=== PATIENT | female | born 1965 | race Two or more races ===

== ENCOUNTER 2021-02-26 09:44 | Emergency (ER) | payer OTHER, SELFPAY ==
--- NOTE | 2021-02-26 | ECG_ITS ---
Test Reason : CHEST PAIN Blood Pressure : / mmHG Vent. Rate : 078 BPM Atrial Rate : 078 BPM P-R Int : 158 ms QRS Dur : 082 ms QT Int : 386 ms P-R-T Axes : 044 -18 006 degrees QTc Int : 440 ms Normal sinus rhythm Cannot rule out Anterior infarct , age undetermined Abnormal ECG When compared with ECG of 30-DEC-2013 04:51, No significant change was found Referred By: Generic ED Physician Electronically Signed By:ALE YOUNGBLOOD MD
--- NOTE | ~2021-02-26 | XR_ITS ---
EXAMINATION: XR CHEST XR ABDOMEN CLINICAL INFORMATION: Chest pain. Evaluate stool burden. COMPARISON: None TECHNIQUE: PA and lateral views of the chest. 1 view, 2 images of the abdomen. FINDINGS: The lungs are well expanded. There is no focal consolidation, edema, or effusion. No pneumothorax. The cardiomediastinal silhouette is within normal limits. No acute osseous abnormality. Nonobstructive bowel gas pattern. No dilated loops of bowel. Gas and stool throughout the colon with mild to moderate colonic stool burden. Right upper quadrant surgical clips. No acute osseous abnormality. XR/XR chest 2V IMPRESSION: Clear lungs. Mild to moderate colonic stool burden.
--- NOTE | ~2021-02-26 | XR_ITS ---
EXAMINATION: XR CHEST XR ABDOMEN CLINICAL INFORMATION: Chest pain. Evaluate stool burden. COMPARISON: None TECHNIQUE: PA and lateral views of the chest. 1 view, 2 images of the abdomen. FINDINGS: The lungs are well expanded. There is no focal consolidation, edema, or effusion. No pneumothorax. The cardiomediastinal silhouette is within normal limits. No acute osseous abnormality. Nonobstructive bowel gas pattern. No dilated loops of bowel. Gas and stool throughout the colon with mild to moderate colonic stool burden. Right upper quadrant surgical clips. No acute osseous abnormality. XR/XR KUB IMPRESSION: Clear lungs. Mild to moderate colonic stool burden.
[2021-02-26 09:51] VITALS: BP 188/85; PULSE 83; RESP 19; TEMP 36.7; O2SAT 96; BMI 38.7
[2021-02-26 12:00] VITALS: BP 137/87; PULSE 73; RESP 18; TEMP 36.4; O2SAT 98
--- NOTE | 2021-02-26 12:09 | ED.CHESTPAIN ---
HPI - Chest Pain General Chief Complaint: Chest Pain <Marybeth Carrillo NP - Last Filed: 02/26/21 16:05> Stated Complaint: chest pain, HBP <Marybeth Carrillo NP - Last Filed: 02/26/21 16:05> Time Seen by Provider: 02/26/21 11:46 <Marybeth Carrillo NP - Last Filed: 02/26/21 16:05> Source: patient <Marybeth Carrillo NP - Last Filed: 02/26/21 16:05> Mode of arrival: ambulatory <Marybeth Carrillo NP - Last Filed: 02/26/21 16:05> Limitations: no limitations <Marybeth Carrillo NP - Last Filed: 02/26/21 16:05> History of Present Illness HPI narrative: 55-year-old female with a past medical history of hypertension hyperlipidemia here with multiple complaints. The patient tells me that she woke up at 01:00 feeling very anxious like her entire body was moving and was able to fall back asleep until 04:00 when she woke up with chest pressure and heaviness which has continued through to her ED visit. She denies any associated shortness of breath, nausea, diaphoresis or dizziness. She tells me she has been struggling with intermittent chest pressure for months but has not seen her doctor or come to the emergency department for concern of COVID. She tells me she is here today because she was accidentally needed 2 weeks ago for COVID-19 and feels less anxious about being here in the emergency department. She does me she has also suppurative panic attacks over the last 2 months which are associated with shortness of breath and palpitations and numbness in her fingers and toes. She is also complaining of chronic bilateral foot numbness, right him numbness, facial numbness, dizziness, abdominal pain, constipation, jaw pain which have been occurring for the last few months. Patient tells me that she had been taking 2 different blood pressure medications and cholesterol medications until about 3 months ago when she was homeless and she stopped taking them. She did resume her losartan 100 mg every day with has not resumed her other medications. Her blood pressures have been running high home which patient tells me has been in the 180s to 90s. <Marybeth Carrillo NP - Last Filed: 02/26/21 16:05> MD complaint: chest heaviness <Marybeth Carrillo NP - Last Filed: 02/26/21 16:05> Related Data Home Medications: Previous Rx's Medication Instructions Recorded docusate sodium [Colace] 100 mg PO BID #20 cap 02/26/21 polyethylene glycol 3350 [Miralax] 17 g PO BID #238 g 02/26/21 <Marybeth Carrillo NP - Last Filed: 02/26/21 16:05> Allergies/Adverse Reactions: Allergies Allergy/AdvReac Type Severity Reaction Status Date / Time apple [Apple] Allergy Severe SWELLING Unverified 02/26/21 09:51 peanut [Peanut] Allergy Severe ANAPHYLAXIS Unverified 02/26/21 09:51 pollen extracts [POLLEN] Allergy Mild SNEEZING Unverified 02/26/21 09:51 acetaminophen [From PERCOCET] Allergy Unknown DIFFICULTY Unverified 02/26/21 09:51 BREATHING oxycodone [From PERCOCET] Allergy Unknown DIFFICULTY Unverified 02/26/21 09:51 BREATHING Penicillin Allergy Unknown Rash Unverified 02/26/21 09:51 lactose [Lactose] AdvReac Intermediate DIARRHEA/PA Unverified 02/26/21 09:51 IN Penicillins [PENICILLINS] AdvReac Intermediate VOMITING Unverified 02/26/21 09:51 DUST Allergy Mild SNEEZING Uncoded 02/26/21 09:51 Amoxicillin Allergy Unknown Rash Uncoded 02/26/21 09:51 Percocet Allergy Unknown Difficulty Uncoded 02/26/21 09:51 Breathing <Marybeth Carrillo NP - Last Filed: 02/26/21 16:05> Review of Systems Review of Systems: Yes all other systems are reviewed and are negative <Marybeth Carrillo NP - Last Filed: 02/26/21 16:05> Constitutional: Constitutional: Reports no additional constitutional complaints, Denies body ache(s), Reports chills, Denies fever(s), Denies headache(s) and Denies weakness <Marybeth Carrillo NP - Last Filed: 02/26/21 16:05> Eyes: Eyes: Reports no additional eye complaints and Denies change in vision <Marybeth Carrillo NP - Last Filed: 02/26/21 16:05> ENT: Reports system reviewed and no additional complaints, except as documented, Reports dizziness, Denies headache(s), Denies nasal congestion, Denies nasal discharge and Denies neck pain <Marybeth Carrillo NP - Last Filed: 02/26/21 16:05> Comments: Jaw pain <Marybeth Carrillo [employer] - Last Filed: 02/26/21 16:05> Cardiovascular: Cardiovascular: Reports no additional cardiovascular complaints, Reports chest pain, Denies leg edema and Denies dyspnea <Marybeth Carrillo NP - Last Filed: 02/26/21 16:05> Respiratory: Respiratory: Reports no additional respiratory complaints, Denies cough and Denies dyspnea <Marybeth Carrillo NP - Last Filed: 02/26/21 16:05> Gastrointestinal: Gastrointestinal: Reports no additional gastrointestinal complaints, Reports abdominal pain, Reports constipation, Denies diarrhea, Denies nausea and Denies vomiting <Marybeth Carrillo NP - Last Filed: 02/26/21 16:05> Genitourinary: Genitourinary: Reports no additional female genitourinary complaints and Denies urinary incontinence <Marybeth Carrillo NP - Last Filed: 02/26/21 16:05> Musculoskeletal: Musculoskeletal: Reports no additional musculoskeletal complaints, Denies back pain, Denies arthralgias, Denies joint swelling, Denies neck pain, Reports numbness and Reports tingling <Marybeth Carrillo NP - Last Filed: 02/26/21 16:05> Integumentary/Breasts: Skin/Breast: Reports system reviewed and no additional complaints, except as docu and Denies rash <Marybeth Carrillo NP - Last Filed: 02/26/21 16:05> Neurologic: Reports system reviewed and no additional complaints, except as documented, Denies Abnormal speech present, Reports dizziness, Denies headache(s), Reports numbness, Reports tingling and Denies weakness <Marybeth Carrillo NP - Last Filed: 02/26/21 16:05> [facility] Past Medical History Attestation statement: The following information was validated with the patient. <Marybeth Carrillo NP - Last Filed: 02/26/21 16:05> Source: old records reviewed and nursing notes reviewed <Marybeth Carrillo NP - Last Filed: 02/26/21 16:05> Medical History: Medical History Diabetes HTN (hypertension) <Marybeth Carrillo NP - Last Filed: 02/26/21 16:05> Social History Social History: Social History Advance Directives: No Advance Directives Information Provided: No <Marybeth Carrillo NP - Last Filed: 02/26/21 16:05> Physical Exam Vital Signs: Vital Signs: Last Vital Signs Temp 98.2 F 02/26/21 14:00 Pulse 77 02/26/21 14:00 Resp 18 02/26/21 12:00 BP 144/77 H 02/26/21 14:00 Pulse Ox 98 02/26/21 14:00 Body Mass Index 38.7 <Marybeth Carrillo NP - Last Filed: 02/26/21 16:05> Vital Signs: Last Vital Signs Temp 98.2 F 02/26/21 14:00 Pulse 77 02/26/21 14:00 Resp 18 02/26/21 12:00 BP 144/77 H 02/26/21 14:00 Pulse Ox 98 02/26/21 14:00 Body Mass Index 38.7 <Vladimir Waller MD - Last Filed: 03/13/21 07:44> Const: General: cooperative, healthy appearing, comfortable and no acute distress <Marybeth Carrillo NP - Last Filed: 02/26/21 16:05> Orientation/consciousness: patient oriented x3 <Marybeth Carrillo NP - Last Filed: 02/26/21 16:05> Limitations: no limitations <Marybeth Carrillo NP - Last Filed: 02/26/21 16:05> HENMT: Head: Yes normal to inspection <Marybeth Carrillo NP - Last Filed: 02/26/21 16:05> Ears: hearing grossly normal bilaterally <Marybeth Carrillo NP - Last Filed: 02/26/21 16:05> General nose exam: Normal external nose present <Marybeth Carrillo NP - Last Filed: 02/26/21 16:05> Face and sinus: Yes normal facial exam <Marybeth Carrillo NP - Last Filed: 02/26/21 16:05> Mouth: Normal oral and palatal mucosa present <Marybeth Carrillo NP - Last Filed: 02/26/21 16:05> Throat: Yes posterior oropharynx normal <Marybeth Carrillo NP - Last Filed: 02/26/21 16:05> Eyes: General: appearance normal, both eyes and all related structures <Marybeth Carrillo NP - Last Filed: 02/26/21 16:05> Pupils: Equal, round and reactive pupils present <Marybeth Carrillo NP - Last Filed: 02/26/21 16:05> Neck: Neck: Yes normal visual inspection <Marybeth Carrillo NP - Last Filed: 02/26/21 16:05> Chest: Chest palpation & inspection: normal inspection of the chest <Marybeth Carrillo NP - Last Filed: 02/26/21 16:05> Resp: Effort & Inspection: normal respiratory effort <Marybeth Carrillo NP - Last Filed: 02/26/21 16:05> Auscultation: clear to auscultation bilaterally <Marybeth Carrillo NP - Last Filed: 02/26/21 16:05> Cardio: Rate: regular rate <Marybeth Carrillo NP - Last Filed: 02/26/21 16:05> Rhythm: regular rhythm <Marybeth Carrillo NP - Last Filed: 02/26/21 16:05> Peripheral pulses: Peripheral pulses 2+ throughout <Marybeth Carrillo NP - Last Filed: 02/26/21 16:05> GI: Inspection: Yes normal to inspection <Marybeth Carrillo NP - Last Filed: 02/26/21 16:05> Palpation (GI): Soft to palpation and Tenderness to palpation present (GI) (Mild diffuse tenderness with no focal tenderness rebound or guarding) <Marybeth Carrillo NP - Last Filed: 02/26/21 16:05> Auscultation: normal bowel sounds <Marybeth Carrillo NP - Last Filed: 02/26/21 16:05> Back/Spine/Pelvis: Thoracic/Lumbar Spine: thoracic and lumbar spine normal to inspection <Marybeth Carrillo NP - Last Filed: 02/26/21 16:05> Skin: General skin exam: no rashes or lesions noted <Marybeth Carrillo NP - Last Filed: 02/26/21 16:05> Neuro: General: patient oriented x3, no focal motor deficits and normal sensation to monofilament <Marybeth Carrillo NP - Last Filed: 02/26/21 16:05> Cranial nerves: Yes CN's II-XII intact bilaterally, Yes Equal, round and reactive pupils present, Yes Bilaterally intact EOM present, Yes Nystagmus not present, Yes Normal facial strength present and Yes Midline tongue present <Marybeth Carrillo NP - Last Filed: 02/26/21 16:05> Cognition (Neuro): normal cognition <Marybeth Carrillo NP - Last Filed: 02/26/21 16:05> Speech: No Abnormal speech present <Marybeth Carrillo NP - Last Filed: 02/26/21 16:05> Gait exam (Neuro): Normal gait present <Marybeth Carrillo NP - Last Filed: 02/26/21 16:05> Motor exam (neuro): 5/5 motor strength present throughout <Marybeth Carrillo NP - Last Filed: 02/26/21 16:05> Sensory Exam: Normal double simultaneous stimulation for sensation <Marybeth Carrillo NP - Last Filed: 02/26/21 16:05> Coordination: [id number] test normal, [id number] test normal and tandem gait normal <Marybeth Carrillo NP - Last Filed: 02/26/21 16:05> Extrem: General: Yes normal to inspection, Yes no pedal edema and Yes no calf tenderness <Marybeth Carrillo NP - Last Filed: 02/26/21 16:05> Course Course Course Narrative: 55-year-old female here with a constellation of symptoms for quite some time however more specifically chest pressure since 04:00. Overall well-appearing. Normal neurological exam. Stable vital signs with exception of mild hypertension. Mild diffuse tenderness in the abdomen but no focal tenderness or rebound or guarding. Will need labs, chest x-ray, KUB, EKG. 1345-labs including troponin are negative. EKG shows no ischemic changes. Chest x-ray unremarkable. KUB shows a [id number] stool burden. Blood pressure improved without any intervention. Reviewed findings with the patient. Recommended follow-up outpatient with her primary care doctor. Reviewed worrisome signs and symptoms of when to seek additional ED care. Comfortable with discharge home. <Marybeth Carrillo NP - Last Filed: 02/26/21 16:05> I have reviewed the chart <Vladimir Waller MD - Last Filed: 03/13/21 07:44> MDM - Chest Pain MDM Narrative Medical decision making narrative: Anxiety, ACS, constipation, bowel obstruction Less likely ACS with symptoms greater than 8 hours, EKG with no ischemic changes and negative troponin Constellation of symptoms most occurring > months that are more concerning for underlying anxiety versus acute emergency. <Marybeth Carrillo NP - Last Filed: 02/26/21 16:05> Medical Records Data Attestation: I reviewed the patient's medical records. <Marybeth Carrillo NP - Last Filed: 02/26/21 16:05> Lab Data Attestation: I reviewed the patient's lab results. <Marybeth Carrillo NP - Last Filed: 02/26/21 16:05> Result diagrams: : 02/26/21 12:36 02/26/21 12:36 <Marybeth Carrillo NP - Last Filed: 02/26/21 16:05> Labs: Lab Results 02/26/21 02/26/21 02/26/21 Range/Units 12:36 12:36 12:36 WBC 7.0 (4.8-10.8) X10*3/uL RBC 4.45 (4.20-5.50) X10*6/uL Hgb 11.9 L (12.0-16.0) g/dl Hct 37.3 (37-47) % MCV 83.8 (80-98) fL MCH 26.7 L (27.0-33.0) pg MCHC 31.9 (31.0-35.0) g/dl RDW 13.2 (11.0-16.0) % Plt Count 369 (160-400) X10*3/uL MPV 10.0 (9.4-12.3) fL Immature Gran % (Auto) 0.1 (0.0-0.4) % Neut % (Auto) 53.5 (45-73) % Lymph % (Auto) 36.1 (20-40) % [place] % (Auto) 7.2 (2-11) % Eos % (Auto) 2.7 (0-4) % Baso % (Auto) 0.4 (0-2) % Lymph # (Auto) 2.5 (1.2-4.9) X10*3/uL [place] # (Auto) 0.5 (0.1-1.2) X10*3/uL Eos # (Auto) 0.2 (0.0-0.4) X10*3/uL Baso # (Auto) 0.0 (0.0-0.2) X10*3/uL Abs Immat Gran (auto) 0.01 (0.00-0.03) X10*3/uL Absolute Neuts (auto) 3.7 (2.0-8.3) X10*3/uL Absolute Nucleated RBC 0.000 (0.0-0.012) X10*3/uL Nucleated RBC % (auto) 0.0 (0.0-0.2) /100WBC PT 12.9 (10.8-13.0) SEC INR 1.1 (0.9-1.1) Sodium 140 (135-145) mmol/L Potassium 4.3 (3.3-5.1) mmol/L Chloride 104 (96-108) mmol/L Carbon Dioxide 28 (22-29) mmol/L Anion Gap 12 (12-20) BUN 14 (9-16) mg/dL Creatinine 0.79 (0.5-1.4) mg/dL Estim Creat Clear Calc 79.3 Estimated GFR > 60 Random Glucose 107 (60-115) mg/dL Calcium 9.6 (8.4-10.2) mg/dL Magnesium 2.1 (1.6-2.6) mg/dL Total Bilirubin 0.4 (0.0-1.0) mg/dL Direct Bilirubin 0.2 (0.0-0.5) mg/dL AST 27 (5-31) U/L ALT 44 H (0-31) U/L Alkaline Phosphatase 63 (39-117) U/L Troponin I High Sens (<3.5-17.0) ng/L Total Protein 7.2 (6.5-8.0) g/dL Albumin 4.3 (3.5-5.0) g/dL Lipase (8-78) U/L Urine Color Urine Appearance Urine pH (5.0-8.0) Ur Specific [place] (1.005-1.025) Urine Protein (NEG-TRACE) MG/DL Urine Glucose (UA) (NEG) MG/DL Urine Ketones (NEG) MG/DL Urine Blood (NEG) Urine Nitrite (NEG) Ur Leukocyte Esterase (NEG) Urine RBC (0) /HPF Urine WBC (0-4) /HPF Ur Squamous Epith Cells /LPF Urine Bacteria /LPF 02/26/21 02/26/21 02/26/21 Range/Units 12:36 12:36 12:36 WBC (4.8-10.8) X10*3/uL RBC (4.20-5.50) X10*6/uL Hgb (12.0-16.0) g/dl Hct (37-47) % MCV (80-98) fL MCH (27.0-33.0) pg MCHC (31.0-35.0) g/dl RDW (11.0-16.0) % Plt Count (160-400) X10*3/uL MPV (9.4-12.3) fL Immature Gran % (Auto) (0.0-0.4) % Neut % (Auto) (45-73) % Lymph % (Auto) (20-40) % [place] % (Auto) (2-11) % Eos % (Auto) (0-4) % Baso % (Auto) (0-2) % Lymph # (Auto) (1.2-4.9) X10*3/uL [place] # (Auto) (0.1-1.2) X10*3/uL Eos # (Auto) (0.0-0.4) X10*3/uL Baso # (Auto) (0.0-0.2) X10*3/uL Abs Immat Gran (auto) (0.00-0.03) X10*3/uL Absolute Neuts (auto) (2.0-8.3) X10*3/uL Absolute Nucleated RBC (0.0-0.012) X10*3/uL Nucleated RBC % (auto) (0.0-0.2) /100WBC PT (10.8-13.0) SEC INR (0.9-1.1) Sodium (135-145) mmol/L Potassium (3.3-5.1) mmol/L Chloride (96-108) mmol/L Carbon Dioxide (22-29) mmol/L Anion Gap (12-20) BUN (9-16) mg/dL Creatinine (0.5-1.4) mg/dL Estim Creat Clear Calc Estimated GFR Random Glucose (60-115) mg/dL Calcium (8.4-10.2) mg/dL Magnesium (1.6-2.6) mg/dL Total Bilirubin (0.0-1.0) mg/dL Direct Bilirubin (0.0-0.5) mg/dL AST (5-31) U/L ALT (0-31) U/L Alkaline Phosphatase (39-117) U/L Troponin I High Sens 3.8 (<3.5-17.0) ng/L Total Protein (6.5-8.0) g/dL Albumin (3.5-5.0) g/dL Lipase 24 (8-78) U/L Urine Color STRAW Urine Appearance CLEAR Urine pH 6.0 (5.0-8.0) Ur Specific [place] 1.025 (1.005-1.025) Urine Protein NEG (NEG-TRACE) MG/DL Urine Glucose (UA) NEG (NEG) MG/DL Urine Ketones NEG (NEG) MG/DL Urine Blood TRACE (NEG) Urine Nitrite NEG (NEG) Ur Leukocyte Esterase NEG (NEG) Urine RBC 0 (0) /HPF Urine WBC 0 (0-4) /HPF Ur Squamous Epith Cells TRACE /LPF Urine Bacteria NONE /LPF <Marybeth Carrillo NP - Last Filed: 02/26/21 16:05> Lab Results 02/26/21 02/26/21 02/26/21 Range/Units 12:36 12:36 12:36 WBC 7.0 (4.8-10.8) X10*3/uL RBC 4.45 (4.20-5.50) X10*6/uL Hgb 11.9 L (12.0-16.0) g/dl Hct 37.3 (37-47) % MCV 83.8 (80-98) fL MCH 26.7 L (27.0-33.0) pg MCHC 31.9 (31.0-35.0) g/dl RDW 13.2 (11.0-16.0) % Plt Count 369 (160-400) X10*3/uL MPV 10.0 (9.4-12.3) fL Immature Gran % (Auto) 0.1 (0.0-0.4) % Neut % (Auto) 53.5 (45-73) % Lymph % (Auto) 36.1 (20-40) % [place] % (Auto) 7.2 (2-11) % Eos % (Auto) 2.7 (0-4) % Baso % (Auto) 0.4 (0-2) % Lymph # (Auto) 2.5 (1.2-4.9) X10*3/uL [place] # (Auto) 0.5 (0.1-1.2) X10*3/uL Eos # (Auto) 0.2 (0.0-0.4) X10*3/uL Baso # (Auto) 0.0 (0.0-0.2) X10*3/uL Abs Immat Gran (auto) 0.01 (0.00-0.03) X10*3/uL Absolute Neuts (auto) 3.7 (2.0-8.3) X10*3/uL Absolute Nucleated RBC 0.000 (0.0-0.012) X10*3/uL Nucleated RBC % (auto) 0.0 (0.0-0.2) /100WBC PT 12.9 (10.8-13.0) SEC INR 1.1 (0.9-1.1) Sodium 140 (135-145) mmol/L Potassium 4.3 (3.3-5.1) mmol/L Chloride 104 (96-108) mmol/L Carbon Dioxide 28 (22-29) mmol/L Anion Gap 12 (12-20) BUN 14 (9-16) mg/dL Creatinine 0.79 (0.5-1.4) mg/dL Estim Creat Clear Calc 79.3 Estimated GFR > 60 Random Glucose 107 (60-115) mg/dL Calcium 9.6 (8.4-10.2) mg/dL Magnesium 2.1 (1.6-2.6) mg/dL Total Bilirubin 0.4 (0.0-1.0) mg/dL Direct Bilirubin 0.2 (0.0-0.5) mg/dL AST 27 (5-31) U/L ALT 44 H (0-31) U/L Alkaline Phosphatase 63 (39-117) U/L Troponin I High Sens (<3.5-17.0) ng/L Total Protein 7.2 (6.5-8.0) g/dL Albumin 4.3 (3.5-5.0) g/dL Lipase (8-78) U/L Urine Color Urine Appearance Urine pH (5.0-8.0) Ur Specific [place] (1.005-1.025) Urine Protein (NEG-TRACE) MG/DL Urine Glucose (UA) (NEG) MG/DL Urine Ketones (NEG) MG/DL Urine Blood (NEG) Urine Nitrite (NEG) Ur Leukocyte Esterase (NEG) Urine RBC (0) /HPF Urine WBC (0-4) /HPF Ur Squamous Epith Cells /LPF Urine Bacteria /LPF 02/26/21 02/26/21 02/26/21 Range/Units 12:36 12:36 12:36 WBC (4.8-10.8) X10*3/uL RBC (4.20-5.50) X10*6/uL Hgb (12.0-16.0) g/dl Hct (37-47) % MCV (80-98) fL MCH (27.0-33.0) pg MCHC (31.0-35.0) g/dl RDW (11.0-16.0) % Plt Count (160-400) X10*3/uL MPV (9.4-12.3) fL Immature Gran % (Auto) (0.0-0.4) % Neut % (Auto) (45-73) % Lymph % (Auto) (20-40) % [place] % (Auto) (2-11) % Eos % (Auto) (0-4) % Baso % (Auto) (0-2) % Lymph # (Auto) (1.2-4.9) X10*3/uL [place] # (Auto) (0.1-1.2) X10*3/uL Eos # (Auto) (0.0-0.4) X10*3/uL Baso # (Auto) (0.0-0.2) X10*3/uL Abs Immat Gran (auto) (0.00-0.03) X10*3/uL Absolute Neuts (auto) (2.0-8.3) X10*3/uL Absolute Nucleated RBC (0.0-0.012) X10*3/uL Nucleated RBC % (auto) (0.0-0.2) /100WBC PT (10.8-13.0) SEC INR (0.9-1.1) Sodium (135-145) mmol/L Potassium (3.3-5.1) mmol/L Chloride (96-108) mmol/L Carbon Dioxide (22-29) mmol/L Anion Gap (12-20) BUN (9-16) mg/dL Creatinine (0.5-1.4) mg/dL Estim Creat Clear Calc Estimated GFR Random Glucose (60-115) mg/dL Calcium (8.4-10.2) mg/dL Magnesium (1.6-2.6) mg/dL Total Bilirubin (0.0-1.0) mg/dL Direct Bilirubin (0.0-0.5) mg/dL AST (5-31) U/L ALT (0-31) U/L Alkaline Phosphatase (39-117) U/L Troponin I High Sens 3.8 (<3.5-17.0) ng/L Total Protein (6.5-8.0) g/dL Albumin (3.5-5.0) g/dL Lipase 24 (8-78) U/L Urine Color STRAW Urine Appearance CLEAR Urine pH 6.0 (5.0-8.0) Ur Specific [place] 1.025 (1.005-1.025) Urine Protein NEG (NEG-TRACE) MG/DL Urine Glucose (UA) NEG (NEG) MG/DL Urine Ketones NEG (NEG) MG/DL Urine Blood TRACE (NEG) Urine Nitrite NEG (NEG) Ur Leukocyte Esterase NEG (NEG) Urine RBC 0 (0) /HPF Urine WBC 0 (0-4) /HPF Ur Squamous Epith Cells TRACE /LPF Urine Bacteria NONE /LPF <Vladimir Waller MD - Last Filed: 03/13/21 07:44> Imaging Data Chest x-ray: Attestation: I personally reviewed and interpreted this imaging study as follows: <Marybeth Carrillo NP - Last Filed: 02/26/21 16:05> Radiologist's impression: The lungs are well expanded. There is no focal consolidation, edema, or effusion. No pneumothorax. The cardiomediastinal silhouette is within normal limits. No acute osseous abnormality. <Marybeth Carrillo NP - Last Filed: 02/26/21 16:05> Abdominal x-ray: Attestation: I personally reviewed and interpreted this imaging study as follows: <Marybeth Carrillo NP - Last Filed: 02/26/21 16:05> Radiologist's impression: Nonobstructive bowel gas pattern. No dilated loops of bowel. Gas and stool throughout the colon with mild to moderate colonic stool burden. Right upper quadrant surgical clips. No acute osseous abnormality. <Marybeth Carrillo NP - Last Filed: 02/26/21 16:05> Discharge Plan Discharge Clinical Impression: Atypical chest pain, Constipation <REMINGTON Vazquez Last Filed: 02/26/21 16:05> Patient Disposition: Home, Self-Care <REMINGTON Vazquez Last Filed: 02/26/21 16:05> Instructions: Constipation (ED), Chest Wall Pain (ED) <REMINGTON Vazquez Last Filed: 02/26/21 16:05> Additional Instructions: Increase fluids and fiber in the diet. I have sent medications to her pharmacy to help with her bowel Your EKG, blood work and chest x-ray all looked very normal today. Your blood pressure improved without any intervention. You should monitor your blood pressure at home as discussed. Keep your appointment with your primary care doctor for follow-up appointment <Marybeth Carrillo NP - Last Filed: 02/26/21 16:05> Prescriptions: New polyethylene glycol 3350 [Miralax] 17 gram/dose powder 17 g PO BID Qty: 238 RF: 0 docusate sodium [Colace] 100 mg capsule 100 mg PO BID Qty: 20 RF: 0 <Marybeth Carrillo NP - Last Filed: 02/26/21 16:05> Referrals: Physician,Unknown [Primary Care Provider] - 2 days <Marybeth Carrillo NP - Last Filed: 02/26/21 16:05> Interventions: ED Discharge Assessment Last Done: 02/26/21 14:21 <Marybeth Carrillo NP - Last Filed: 02/26/21 16:05> Discharge Date/Time: 02/26/21 14:25 <Marybeth Carrillo NP - Last Filed: 02/26/21 16:05>
[2021-02-26 12:41] LABS: MANUAL DIFF FLAG NO
[2021-02-26 12:45] LABS: Basophils Percent Auto 0.4 % (0-2); Eosinophils Absolute Auto 0.2 X10*3/uL (0.0-0.4); Eosinophils Percent Auto 2.7 % (0-4); Hematocrit 37.3 % (37-47); Hemoglobin 11.9 g/dl (12.0-16.0); Imm Gran Abs Auto 0.01 X10*3/uL (0.00-0.03); Imm Gran Pct Auto 0.1 % (0.0-0.4); Lymphocytes Absolute Auto 2.5 X10*3/uL (1.2-4.9); Lymphocytes Percent Auto 36.1 % (20-40); Mean Corpuscular HGB Conc 31.9 g/dl (31.0-35.0); Mean Corpuscular Hemoglobin 26.7 pg (27.0-33.0); Mean Corpuscular Volume 83.8 fL (80-98); Monocytes Absolute Auto 0.5 X10*3/uL (0.1-1.2); Monocytes Percent Auto 7.2 % (2-11); Neutrophils Absolute Auto 3.7 X10*3/uL (2.0-8.3); Neutrophils Percent Auto 53.5 % (45-73); Platelet Count 369 X10*3/uL (160-400); Red Blood Count 4.45 X10*6/uL (4.20-5.50); Red Cell Distribution Width 13.2 % (11.0-16.0)
[2021-02-26 12:51] LABS: Glucose Urine UA NEG (NEG); Leukocyte Esterase Urine NEG (NEG); Nitrite Urine NEG (NEG); Specific Gravity - Urine 1.025 (1.005-1.025); Urine Blood TRACE (NEG); Urine Ketones NEG (NEG); Urine Protein NEG (NEG-TRACE)
[2021-02-26 12:54] LABS: Appearance Urine CLEAR; Color Urine STRAW
[2021-02-26 12:57] LABS: INTERNATIONAL NORM RATIO 1.1 (0.9-1.1); Prothrombin Time 12.9 SEC (10.8-13.0)
[2021-02-26 13:10] LABS: RBC Urine 0 /HPF (0); Squamous Epithelial Cell Urine TRACE /LPF; WBC Urine 0 /HPF (0-4)
[2021-02-26 13:15] LABS: Alanine Aminotransferase 44 U/L (0-31); Albumin Level 4.3 g/dL (3.5-5.0); Alkaline Phosphatase 63 U/L (39-117); Anion Gap 12 (12-20); Aspartate Amino Transferase 27 U/L (5-31); Bilirubin Direct 0.2 mg/dL (0.0-0.5); Bilirubin Total 0.4 mg/dL (0.0-1.0); Blood Urea Nitrogen 14 mg/dL (9-16); Calcium 9.6 mg/dL (8.4-10.2); Carbon Dioxide 28 mmol/L (22-29); Chloride 104 mmol/L (96-108); Creatinine Clr Calc Pharmacy 79.3; Estimated Glomerular Filt Rate > 60; Glucose Random 107 mg/dL (60-115); Magnesium 2.1 mg/dL (1.6-2.6); Potassium 4.3 mmol/L (3.3-5.1); Sodium 140 mmol/L (135-145); Total Protein 7.2 g/dL (6.5-8.0)
[2021-02-26 13:16] LABS: Lipase 24 U/L (8-78)
[2021-02-26 13:18] LABS: Troponin-I High Sensitivity 3.8 ng/L (<3.5-17.0)
[2021-02-26 14:00] VITALS: BP 144/77; PULSE 77; TEMP 36.8; O2SAT 98
== END 2021-02-26 14:25 | disposition home or self-care (01) ==
PROVIDERS: Nurse Practitioner Family; Emergency Provider Emergency Medicine
DX: R07.89 Other chest pain (principal); K59.00 Constipation, unspecified; I10 Essential (primary) hypertension; E78.5 Hyperlipidemia, unspecified; E11.9 Type 2 diabetes mellitus without complications
CPT/HCPCS: 36415; 71046; 74018; 80048; 80076; 81001; 83690; 83735; 84484; 85025; 85610; 93005; 99283; 99284